=== PATIENT | female | born 1955 | race Caucasian/White ===

== ENCOUNTER → 2021-05-16 | Outpatient (CLI) | payer OTHER ==
[~2021-05-16] MED LIST: ACETAMINOPHEN325 M1 PO; ADVAIR 250-501 EACH; ADVAIR HFA 45MC1 AER NS; AMITRIPTYLINE H10 M1 OR; AMITRIPTYLINE H10 M1 PO; ATIVAN0.5 MG OR; ATIVAN0.5 MG PO; AZITHROMYCIN IV; BENADRYL25 MG PO; CARBIDOPA-LEVO1 EAC1 OR; CARBIDOPA-LEVO1 EAC5 PO; CELEXA 20 MG TA20 M1 OR; CELEXA40 MG PO; CEPHALEXIN 500500 M1 PO; CLONAZEPAM OR; COLACE 100 MG100 MG PO; CYCLOBENZAPRINE10 MG PO; DILAUDID 2 MG TA2 MG PO; HYDROCODON-ACE1 EAC7 OR; HYDROCODON-ACE1 EAC7 PO; IMITREX 25 MG T25 MG PO; LOVENOX SQ; MECLIZINE 25 MG25 M1 PO; METHOCARBAMOL750 MG PO; MORPHINE 2 IV; MS CONTIN30 MG PO; NEURONTIN 300300 M1 PO; OMEPRAZOLE20 M2 PO; PHENERGAN 25 MG25 M1 PO; PROTONIX IV40 MG IV; ROCEPHIN 11 GM/100 M IV; SPIRIVA INH; UNIPHYL600 MG PO; VERAPAMIL HCL 880 M1 OR; VERAPAMIL SR 1120 M1 PO; VITAMIN B-12500 MCG PO; ZANTAC 150MG T150 M1 OR; ZOFRAN 4 MG ORAL4 MG PO
--- NOTE | 2021-05-17 14:07 | PATH ---
[facility] [address] [place] [address] PATHOLOGY RPT PROCEDURE Name: ESMER CURRY Room #: REG [facility] Gregory.#: [id number] Admission: 05/16/21 Date of : 57 Discharge: Report #: [id number] Path Case #: [id number] [facility] Accession Number: [id number] . 01 Material submitted: . breast - LEFT BREAST CALCIFICATIONS. Modifiers: left, anterior . 01 Clinical history: . COLLECTED 1350 PM FORMALIN 1400 PM . 02 Diagnosis: Left breast calcifications, anterior, stereotactic guided needle biopsies: - Breast with fibrocystic changes including mild usual ductal hyperplasia, apocrine metaplasia, columnar cell hyperplasia and fibroadenomatoid nodule. - Stromal calcifications identified within the fibroadenomatoid nodule. - Microcalcifications also identified within columnar cell hyperplasia - Negative for atypia, in situ carcinoma or malignancy. (ANK:rodger; 05/17/2021) MBR 05/17/2021 1313 Local . 02 Comment: This case has been co-reviewed by Dr. Julieta Duran who agrees on 05/17/2021. (ANK:rodger; 05/17/2021) . 02 Electronically signed: . Gertrude Beyer MD, Pathologist NPI- [id number] . 01 Gross description: . The specimen is received in formalin, labeled "Esmer Curry". No source is listed on the container. The source is designated on the requisition as "left breast calcifications, anterior". Received are multiple needle cores of pink-red to pale yellow fibrofatty breast tissue measuring measuring 4.0 x 2.8 x 0.3 cm in aggregate dimensions. Also received is a plastic cassette containing a single needle core of pale yellow fibrofatty tissue measuring 3.2 x 0.8 x 0.3 cm in aggregate dimensions. The tissue in the cassette is transferred to cassette A1, and the remaining tissue is submitted entirely in cassette A2-A3. The specimen is collected at [address] into formalin 1400 on 05/16/2021. The specimen is removed from formalin at 2240 on 05/16/2021. The total formalin fixation time is 8 hours and 40 minutes. ([facility]; 05/16/2021) NRI/NRI 05/16/2021 2212 Local . 02 [place] [address] PATHOLOGY RPT PROCEDURE Name: ESMER CURRY Room #: REG CLBeckie Morales#: [id number] Admission: 05/16/21 Date of : 57 Discharge: Report #: [id number] Path Case #: [id number] Pathologist provided ICD-10: N60.12, N60.82, N62 . 02 CPT . 778723 Specimen Comment: A courtesy copy of this report has been sent to [phone], [phone] Specimen Comment: [phone] Specimen Comment: Report sent to AND DR STEELE Performed at: [address], [place] [id number] MD Bennie Zarate MD Phone: [phone] Performed at: [address] [id number] MD Julieta Duran MD Phone: [phone]
== END | disposition home or self-care (01) ==
LOC: RAD 13:07
DX: R92.1 Mammographic calcification found on diagnostic imaging of breast (principal); N60.12 Diffuse cystic mastopathy of left breast; N60.82 Other benign mammary dysplasias of left breast; N62 Hypertrophy of breast; Z98.890 Other specified postprocedural states; Z79.899 Other long term (current) drug therapy; Z88.8 Allergy status to other drugs, medicaments and biological substances